=== PATIENT | female | born 1950 | race Caucasian/White ===

== ENCOUNTER → 2016-10-09 | Outpatient (CLI) | payer OTHER ==
[~2016-10-09] MED LIST: ATV1; DSP25 PO; LABE100T16 PO
== END | disposition home or self-care (01) ==
LOC: C.PAPS 12:24
PROVIDERS: ATTEND Obstetrics & Gynecology
DX: Z01.419 Encounter for gynecological examination (general) (routine) without abnormal findings (principal)

== ENCOUNTER → 2017-09-01 | Outpatient (CLI) | payer OTHER ==
--- NOTE | 2017-09-01 11:59 | DIAGNOSTIC IMAGING REPORT ---
CHEST 2 VIEWS ROUTINE CLINICAL HISTORY: Sarcoidosis. Dyspnea on exertion. COMPARISON STUDY: Chest radiograph April 09, 2016. FINDINGS: Lung volumes are normal. There is no pneumothorax or pleural effusion. There is no evidence for pulmonary edema. There is no consolidation to suggest pneumonia. Cardiomediastinal silhouette is unremarkable. The appearance of the chest is unchanged. IMPRESSION: No acute cardiopulmonary findings. No change in appearance of the chest. Electronically signed by: Paolo Da Silva M.D. 09/01/2017 11:58 AM Dictated Date/Time: 09/01/2017 11:57 AM
[2017-09-01 12:08] LABS: BASO % 0.4 %; BASO ABS # 0.04 K/uL (0-0.2); EOS % 1.8 %; EOS ABS # 0.18 K/uL (0-0.5); HEMATOCRIT 43.3 % (37-47); HEMOGLOBIN 14.4 g/dL (12.0-16.0); IG# 0.08 K/uL (0.00-0.02); LYMPH % 27.6 %; LYMPH ABS # 2.69 K/uL (1.2-3.4); MEAN CELL VOLUME 87.3 fL (80-100); MEAN CORPUSCULAR HGB CONC 33.3 g/dl (32-36); MEAN PLATELET VOLUME 9.8 fL (7.4-10.4); MONO % 8.2 %; NEUT % 61.2 %; NEUT ABS # 5.97 K/uL (1.4-6.5); PLATELET COUNT 283 K/uL (130-400); RED CELL DISTRIBUTION WIDTH CV 14.3 % (11.5-14.5); RED CELL DISTRIBUTION WIDTH SD 45.6 fL (36.4-46.3); WHITE BLOOD COUNT 9.76 K/uL (4.8-10.8)
[2017-09-01 12:42] LABS: BLOOD UREA NITROGEN 15 mg/dl (7-18); CREATININE 0.87 mg/dl (0.60-1.20); GLUCOSE 82 mg/dl (70-99)
[2017-09-01 12:43] LABS: ALBUMIN 3.8 gm/dl (3.4-5.0); ALT/SGPT 25 U/L (12-78); AST/SGOT 12 U/L (15-37); CALCIUM 9.1 mg/dl (8.5-10.1); CARBON DIOXIDE 27 mmol/L (21-32); CHOLESTEROL 307 mg/dl (0-200); POTASSIUM 3.6 mmol/L (3.5-5.1); SODIUM 138 mmol/L (136-145)
[2017-09-01 12:53] LABS: ALKALINE PHOSPHATASE 101 U/L (45-117); LDL CHOLESTEROL CALCULATED 196 mg/dl; TOTAL PROTEIN 7.4 gm/dl (6.4-8.2)
== END | disposition home or self-care (01) ==
LOC: C.RAD 10:49
PROVIDERS: ATTEND Family Medicine
DX: R06.09 Other forms of dyspnea (principal); D86.9 Sarcoidosis, unspecified; E03.9 Hypothyroidism, unspecified; E78.5 Hyperlipidemia, unspecified; R53.83 Other fatigue; I10 Essential (primary) hypertension

== ENCOUNTER → 2017-09-28 | Outpatient (CLI) | payer OTHER ==
--- NOTE | 2017-10-02 13:21 | POLYSOMNOGRAPH REPORT ---
PORTABLE SLEEP STUDY REPORT REFERRING PHYSICIAN: Dr. Alfonso, Dr. Sommers. CLINICAL DATA: The patient is a 67-year-old female with a BMI of 37.97. She has a history of snoring and observed apneas. Her Paris sleepiness scale score is 7. On the evening of 09/29/2017, a home sleep apnea test was performed using the [employer] type 3 monitor. RECORDING RESULTS: Total recording time was 10 hours. The patient's estimated sleep time was 7 hours. RESPIRATORY DATA: There was no evidence of significant sleep apnea. The patient had a total of 22 respiratory events including 3 obstructive apneas, 1 central apnea, and 18 hypopneas. Hypopneas were scored according to the 4% desaturation rule. The YOLANDA was 3.1 events per hour. The longest respiratory event was 26 seconds. OXIMETRY DATA: The mean saturation for the night was 92%. The minimum saturation was 57%. However, this may well be technical. Occasionally, during the test, the patient's pulse oximeter did not read. There seemed to be a lot of movement often during the night. The time below 89% was 14 minutes, but it is unknown if this was valid or not. RATE DATA: Cardiac rates ranged from 34-87 beats per minute. Once again in light of the pulse oximeter not reading for the entire night, it is unknown if the low heart rates were accurate or not. SNORING DATA: The patient snored throughout the test. IMPRESSION: 1. No evidence of significant obstructive sleep apnea. 2. Cannot entirely exclude nocturnal hypoxia. RECOMMENDATIONS: 1. It is advised that the patient have an overnight pulse oximetry study done to help exclude nocturnal hypoxia. 2. The patient should be advised of the appropriate principles of sleep hygiene including having a regular sleep-wake schedule and allowing 7.5 hours of sleep time per night. 3. It would be suggested that she avoid sleeping in the supine position. Typically, there is more snoring and respiratory events while supine. 4. Weight loss would be advised in light of the elevation of body mass index of 37.97.
== END | disposition home or self-care (01) ==
LOC: C.NEUR 12:44
PROVIDERS: ATTEND Internal Medicine Pulmonary Disease
DX: D86.9 Sarcoidosis, unspecified (principal); G47.30 Sleep apnea, unspecified; R06.09 Other forms of dyspnea; I11.0 Hypertensive heart disease with heart failure; M25.50 Pain in unspecified joint; E66.9 Obesity, unspecified

== ENCOUNTER → 2017-11-05 | Outpatient (CLI) | payer OTHER ==
[~2017-11-05] MED LIST changes: +PERFLUTREN LIPID MICROSPHERE (DEFINITY) IV ONE
--- NOTE | 2017-11-05 14:35 | EXERCISE STRESS ECHO ---
*NOTICE TO RECEIVING DEMOCRAT AGENCY This information is strictly Confidential and protected under [place] law. [place] law prohibits you from making any further disclosure of this information unless further disclosure is expressly permitted by the written consent of the person to whom it pertains or is authorized by law. A general authorization for the release of medical or other information is not sufficient for this purpose. Hospital accepts no responsibility if the information is made available to any other person, INCLUDING THE PATIENT. Interpretation Summary * Name: DAVIN YANEZ Study Date: 11/05/2017 09:37 AM BP: 109/43 mmHg * Patient Location: [facility] HR: 82 * : 1950 (M/d/yyyy) Gender: Female Height: 63 in * Age: 67 yrs Ethnicity: CA Weight: 200 lb * Ordering Physician: Suresh Sommers * Referring Physician: Suresh Sommers * Performed By: Alize Barahona RDCS * * Reason For Study: SARCOIDOSIS, SLEEP DISTURBANCE * BSA: 1.9 m2 * -- Conclusions -- * Left ventricular systolic function is normal. * The right ventricular systolic function is reduced as assessed by tricuspid annular plane systolic excursion (TAPSE) (TAPSE <1.6 cm). * Sub maximal exercise echocardiogram * Test terminated due to significant fatigue and dyspnea * No evidence of inducible ischemia at the workload achieved Procedure Details * A contrast injection of Definity was performed to improve assessment of LV function. * Contrast was injected into an intravenous site in the right arm. * One vial of Definity ultrasound contrast was diluted in normal saline to a total volume of 10 ml. A total of '4' ml of solution was administered during imaging. * Lot # [id number] of Definity utilized for procedure. * Expiration date 10/28. * The attending nurse who injected the contrast agent was RAJWINDER FITZPATRICK RN. Left Ventricular Findings with Stress * Sub maximal exercise echocardiogram Test terminated due to significant fatigue and dyspnea No evidence of inducible ischemia at the workload achieved Left Ventricle * The left ventricle is normal in size. * There is normal left ventricular wall thickness. * Ejection Fraction = 65-70%. * Left ventricular systolic function is normal. * The left ventricular wall motion is normal at rest. Right Ventricle * The right ventricle is grossly normal size. * The right ventricular systolic function is reduced as assessed by tricuspid annular plane systolic excursion (TAPSE) (TAPSE <1.6 cm). Atria * The left atrial size is normal. * Right atrial size is normal. Mitral Valve * The mitral valve is grossly normal. * There is no mitral regurgitation noted. Tricuspid Valve * The tricuspid valve is not well visualized, but is grossly normal. * No tricuspid regurgitation. Aortic Valve * The aortic valve is normal in structure and function. * The aortic valve is trileaflet. * No hemodynamically significant valvular aortic stenosis. * There is no significant aortic regurgitation. Pericardium * The pericardium appears normal. * There is no pericardial effusion. Stress Parameters * Normal baseline electrocardiogram. * Stress ECG: No ST changes. No arrhythmias. * The stress portion of this study was personally supervised by the undersigned interpreting physician. * Rest heart rate was '82' BPM. * Rest blood pressure was '109/43' * Maximum heart rate achieved was 131 bpm. * Maximum heart rate was 86 % of maximum age-predicted heart rate. * Maximum blood pressure was '157/66' * Total exercise time was '3:49' * Maximum exercise MET level achieved was '5.50' METS * Maximum treadmill speed was '2.50' miles per hour. * Maximum treadmill elevation was '12.00'% grade. * The patient exhibited dyspnea during exercise. * Exercise was stopped due to dyspnea. Left Ventricular Findings with Stress * The baseline EKG was normal There are no significant ST or T-wave changes at peak exertion Baseline echocardiogram was normal There was normal augmentation of all segments without development of wall motion abnormalities at peak exertion Gonzalez treadmill score: 3.5 (intermediate risk) MMode 2D Measurements and Calculations IVSd 1.0 cm IVSs 1.7 cm LVIDd 5.1 cm LVIDs 3.1 cm LVPWd 0.96 cm LVPWs 2.2 cm IVS/LVPW 1.1 FS 39.3 % EDV(Teich) 122.4 ml ESV(Teich) 37.4 ml EF(Teich) 69.5 % EDV(cubed) 130.7 ml ESV(cubed) 29.3 ml EF(cubed) 77.6 % % IVS thick 63.9 % % LVPW thick 130.4 % LV mass(C)d 183.1 grams LV mass(C)dI 94.7 grams/m\S\2 LV mass(C)s 255.7 grams LV mass(C)sI 132.2 grams/m\S\2 SV(Teich) 85.0 ml SI(Teich) 44.0 ml/m\S\2 SV(cubed) 101.4 ml SI(cubed) 52.4 ml/m\S\2 ACS 1.6 cm LA dimension 3.5 cm asc Aorta Diam 3.4 cm LVOT diam 2.1 cm LVOT area 3.4 cm\S\2 LVAd ap4 26.7 cm\S\2 LVLd ap4 7.3 cm EDV(MOD-sp4) 81.5 ml EDV(sp4-el) 83.3 ml LVAs ap4 12.8 cm\S\2 LVLs ap4 5.4 cm ESV(MOD-sp4) 25.9 ml ESV(sp4-el) 25.9 ml EF(MOD-sp4) 68.1 % EF(sp4-el) 68.9 % LVAd ap2 23.4 cm\S\2 LVLd ap2 7.2 cm EDV(MOD-sp2) 64.9 ml EDV(sp2-el) 64.6 ml LVAs ap2 12.4 cm\S\2 LVLs ap2 6.0 cm ESV(MOD-sp2) 22.2 ml ESV(sp2-el) 21.9 ml EF(MOD-sp2) 65.8 % EF(sp2-el) 66.1 % LVLd %diff -0.86 % EDV(MOD-bp) 73.3 ml LVLs %diff 9.5 % ESV(MOD-bp) 24.7 ml EF(MOD-bp) 66.3 % SV(MOD-sp4) 55.5 ml SI(MOD-sp4) 28.7 ml/m\S\2 SV(MOD-sp2) 42.7 ml SI(MOD-sp2) 22.1 ml/m\S\2 SV(MOD-bp) 48.6 ml SI(MOD-bp) 25.1 ml/m\S\2 SV(sp4-el) 57.4 ml SI(sp4-el) 29.7 ml/m\S\2 SV(sp2-el) 42.7 ml SI(sp2-el) 22.1 ml/m\S\2 Doppler Measurements and Calculations MV E max pastora 56.6 cm/sec MV A max pastora 51.3 cm/sec MV E/A 1.1 MV dec time 0.29 sec Ao V2 max 123.4 cm/sec Ao max PG 6.1 mmHg Ao max PG (full) 3.9 mmHg SEBAS(V,A) 2.0 cm\S\2 SEBAS(V,D) 2.0 cm\S\2 LV V1 max PG 2.2 mmHg LV V1 max 73.9 cm/sec PA V2 max 67.9 cm/sec PA max PG 1.8 mmHg
== END | disposition home or self-care (01) ==
LOC: C.CPL 09:32
PROVIDERS: ATTEND Internal Medicine Pulmonary Disease
DX: D86.9 Sarcoidosis, unspecified (principal); G47.9 Sleep disorder, unspecified

== ENCOUNTER 2021-11-04 06:17 | Observation (INO) ==
--- NOTE | 2021-10-15 08:39 | PAT Medication Instructions ---
Medication Instructions Date of Service October 15, 2021 Home Medications Medication Instructions Recorded buspirone 5 mg tablet 5 mg PO BID #180 tab 01/31/21 atorvastatin 10 mg tablet 10 mg PO QAM #90 tab 06/10/21 diclofenac sodium 75 mg 75 mg PO BID #180 tab 07/01/21 tablet,delayed release lorazepam 1 mg tablet 1.5 mg PO HS #45 tab 09/14/21 desipramine 50 mg tablet 200 mg PO QAM #90 tab 10/06/21 buspirone 5 mg tablet 5 mg PO BID docusate sodium 100 mg capsule (Colace) 100 mg PO QAM atorvastatin 10 mg tablet 10 mg PO QAM diclofenac sodium 75 mg tablet,delayed release 75 mg PO BID spironolactone 50 mg tablet 50 mg PO QAM lorazepam 1 mg tablet 1.5 mg PO HS desipramine 50 mg tablet 200 mg PO QAM acetaminophen 325 mg tablet (Tylenol) 650 mg PO HS calcium carbonate 600 mg-vitamin D3 5 mcg (200 unit) tablet 1 tab PO QAM ASK your surgeon for instructions diclofenac sodium 75 mg tablet,delayed release 75 mg PO BID DO NOT take the morning of surgery docusate sodium 100 mg capsule (Colace) 100 mg PO QAM spironolactone 50 mg tablet 50 mg PO QAM calcium carbonate 600 mg-vitamin D3 5 mcg (200 unit) tablet 1 tab PO QAM Take morning of surgery With a small sip of water, OTHERWISE NOTHING TO EAT OR DRINK AFTER MIDNIGHT: buspirone 5 mg tablet 5 mg PO BID atorvastatin 10 mg tablet 10 mg PO QAM desipramine 50 mg tablet 200 mg PO QAM Take evening before surgery buspirone 5 mg tablet 5 mg PO BID lorazepam 1 mg tablet 1.5 mg PO HS acetaminophen 325 mg tablet (Tylenol) 650 mg PO HS Other Notes If you have any questions please call us at [phone] or [phone] or [phone] or [phone]
--- NOTE | 2021-10-15 09:31 | Anesthesiology Consultation ---
Date of Service October 15, 2021 Assessment & Plan (1) Encounter for pre-operative examination: - awaiting PCP response to optimization note regarding elevated creatinine. - pulmonology office visit 12/06/2020 [place]: "...Shortness of breath on exertion No personal or family history of asthma Lifetime non-smoker Has used albuterol inhaler without any significant relief. Patient signs and symptoms does not go along with asthma. Chest x-ray from today does not show any infiltrates or hilar lymphadenopathy. CT chest from 2010 did show mosaicism which can be seen in asthma but it can also be seen in morbid obesity. Looking at PFTs, 2D echo I th ink physical deconditioning is playing a major role when it comes to her shortness of breath rather than pulmonary or cardiac etiology. PFTs 11/01/2020: No obstructive lung dysfunction, minimal but insignificant bronchodilator response, normal DLCO. Suboptimal test as she was not able to exam for 6 seconds. (Improvement in lung volumes compared to 09/2017, patient has lost 20 pounds since that time). FVC 2.3 L, 102%, FEV1 2.02 L 116%, FEV1/FVC 88%, RV 102%, TLC 99%, RV/TLC 106%, DLCO 85%. 2D echo 11/26/2020: EF 60-65%, grade 1 diastolic dysfunction, right ventricular normal in size and function. Labs 02/19/2020:-TSH: 2.3, calcium 9.2 with albumin 4, AST 11, ALT 20, no lymphopenia appreciated on CBC, absolute eosinophil count of 280--History of sarcoidosis. Diagnosed s/p mediastinoscopy back in the eighties. Patient was never treated. On the CT chest in 2010 no mediastinal lymphadenopathy or any parenchymal abnormality were appreciated. Labs from 02/19/2020 shows normal calcium and normal LFTs. I do not think repeat CAT scan is indicated right now. Does not need further work-up or treatment. Chest x-ray 05/07/2020: PA/lateral view, good inspiratory effort, bilateral costophrenic and cardiophrenic angles are clean, no clear infiltrate appreciated. CT chest 05/04/2011: Mosaicism appreciated bilaterally, insignificant mediastinal adenopathy...There is no absolute contraindication from pulmonary perspective to have the knee surgeries. Patient may benefit from BiPAP post surgery..." - COVID screening: Per assessment on 10/15/2021: Travel screen negative, no known COVID-19 positive contacts or current COVID-19 related symptoms in past 2 weeks. Patient vaccinated. Surgeon arranging preop COVID testing, scheduled 10/31/2021. Awaiting results. Chart Review Chart Review: Pending: Refer to Additional Notes / Consult section and Patient seen in Pre Admission Testing Teaching & Discussion Pre-Anesthesia Teaching/Discussion Notes: Instructed NPO after midnight before surgery, except medications with 15 cc of water. Medication instructions provid ed according to the PAT guidelines. History Surgery Operation Date: 11/04/21 08:50 Proposed Procedures p Right Total Knee Replacement - David Yee MD Surgery re-scheduled from 02/2021. Height/Weight Height: 5 ft 3 in Weight: 93.8 kg Allergies Allergy/AdvReac Type Severity Reaction Status Date / Time amoxicillin Allergy Unknown Rash Verified 10/10/21 14:26 ampicillin Allergy Unknown Rash Verified 10/10/21 14:26 clindamycin Allergy Unknown Rash Verified 10/10/21 14:26 Medications Home Medications Medication Instructions Recorded Confirmed Last Taken buspirone 5 mg tablet 5 mg PO BID #180 tab 01/31/21 10/10/21 Unknown docusate sodium 100 mg capsule 100 mg PO QAM 02/12/21 10/10/21 Unknown (Colace) atorvastatin 10 mg tablet 10 mg PO QAM #90 tab 06/10/21 10/10/21 Unknown diclofenac sodium 75 mg 75 mg PO BID #180 tab 07/01/21 10/10/21 Unknown tablet,delayed release spironolactone 50 mg tablet 50 mg PO QAM 07/22/21 10/10/21 Unknown lorazepam 1 mg tablet 1.5 mg PO HS #45 tab 09/14/21 10/10/21 Unknown desipramine 50 mg tablet 200 mg PO QAM #90 tab 10/06/21 10/10/21 Unknown acetaminophen 325 mg tablet 650 mg PO HS 10/10/21 10/10/21 Unknown (Tylenol) calcium carbonate 600 mg-vitamin 1 tab PO QAM 10/10/21 10/10/21 Unknown D3 5 mcg (200 unit) tablet Past Medical History Medical History (Updated 10/15/21 @ 10:14 by Kat Paz PA-C) Anxiety and depression Dyspnea on exertion GERD (gastroesophageal reflux disease) controlled, stable per pt History of sarcoidosis Surrounding lung region per pt, no recent issues/stable Hyperlipidemia Hypertension controlled, stable per pt Obesity Thyroid goiter Under surveillance TMJ (temporomandibular joint disorder) NO LOCKING Patient denies h/o stroke, seizures, heart attack, heart failure, DM, blood clots or blood transfusions. Exercise / Class Metabolic Activity III < 4 Walking/Shop/Light housework (SOB with usual activities ongoing x yrs, denies change or worsening; denies CP) Past Family History Family History Unknown Ovarian cancer Breast cancer Father Stroke syndrome Other No family history of adverse response to anesthesia Denies family history of Prostate cancer Myocardial infarction Colorectal cancer Past Surgical History Surgical History History of anesthesia reaction SLOW TO WAKE UP History of section History of dilation and curettage History of lung biopsy History of tooth extraction History of tubal ligation Past Anesthesia History No Family Hx of Anesthesia Complications and Other (slow to wake) History of PONV No Hx of PONV, No Hx of Motion Sickness and Hx of Motion Sickness Social History Smoking Status: Never smoker Do You Dip or Chew Tobacco: No Hx Alcohol Use: No Hx Substance Use: No Review of Systems Snoring, denies witnessed apneas. Normal sleep study. Patient denies chest pain, snoring, witnessed apneas, fever, chills, cough, wheezing, or palpitations. Physical Exam Vital Signs Vitals BP 108/71 P 80 TEMP 98.1 SP02 99% on RA RESP 17 Physical Full cervical extension range of motion without pain Full TMJ range of motion TMD 3.5 finger breaths Mallampati Score 3 Dentition: intact, missing right upper back teeth; denies chipped or loose teeth, caps/crowns, implants or bridges Lungs: normal respiratory effort. Clear throughout to auscultation, no adventitious breath sounds Cardiac: regular rate and rhythm, no murmurs noted Carotid arteries: negative bruit bilat Lab Results Anesthesia Preop Results Results Anesthesia Widget: WBC 7.17 K/uL (4.8-10.8) 10/15/21 Hgb 13.5 g/dL (12.0-16.0) 10/15/21 Hct 40.4 % (37-47) 10/15/21 Plt 272 K/uL (130-400) 10/15/21 Na 134 mmol/L (136-145) L 10/15/21 K 5.0 mmol/L (3.5-5.1) 10/15/21 Cl 103 mmol/L (98-107) 10/15/21 CO2 24 mmol/L (21-32) 10/15/21 BUN 23 mg/dl (6-23) 10/15/21 Creat 1.52 mg/dl (0.6-1.2) H 10/15/21 Glucose Level 102 mg/dl (70-99(Fasting)) H 10/15/21 PT 10.4 Seconds (9.0-12.0) 10/15/21 PTT 25.6 Seconds (21.0-31.0) 10/15/21 INR 1.0 (0.9-1.1) 10/15/21 TSH 1.992 uIu/ml (0.300-4.500) 08/18/21 Blood Type B Positive 10/15/21 Antibody Screen NEGATIVE 10/15/21 Testing Electrocardiogram Date: 02/17/21 NSR, rate 79 bpm Low voltage QRS Incomplete RBBB Chest X-Ray Date: 10/15/21 FINDINGS: No lines and tubes are seen. The cardiomediastinal silhouette is normal. The lungs are clear. No evidence of pleural effusion or pneumothorax. IMPRESSION: No acute chest disease. Echocardiogram Date: 11/26/20 EF 60-65% Normal LV size, thickness and function No regional wall motion abnormalities Grade I diastolic dysfunction No significant valvular pathology Stress Test Date: 11/05/17 Type: exercise No evidence of inducible ischemia at workload achieved. 86% MPHR. 5.5 METS. Submaximal exercise echocardiogram. Test terminated due to significant fatigue and dyspnea. EF 65 to 70%. No significant valvular disease.
--- NOTE | 2021-10-31 15:30 | History and Physical Report ---
DATE OF ADMISSION: 11/04/2021 CHIEF COMPLAINT: Bilateral knee pain and discomfort, right side greater than left. HISTORY OF PRESENT ILLNESS: The patient is a 71-year-old female who now presents for surgical treatm ent of her right knee. She has got a long history of bilateral knee pain and discomfort that has gra dually gotten worse over time. She has had extensive treatment provided by Dr. Ritter in the past i ncluding injections, which have not been helpful lately. The last shot did not help at all. She has been using a walker to get around. She has become more debilitated by her pain. She would like to have her knees fixed. PAST MEDICAL HISTORY: Significant for, 1. Depression. 2. Obesity with a BMI of 37. 3. Hypertension. 4. Sarcoidosis, well compensated. 5. Low back pain. PAST SURGICAL HISTORY: Includes, 1. x2. 2. Lung surgery for sarcoidosis. ALLERGIES: AMOXICILLIN, WHICH CAUSES A RASH. ALSO DESCRIBES A RASH TO CLINDAMYCIN. CURRENT MEDICATIONS: Include, 1. Amlodipine. 2. Aspirin. 3. Atorvastatin. 4. Buspirone. 5. Desipramine. 6. Diclofenac. 7. Colace. 8. Spironolactone. 9. Clonazepam. 10. Tramadol. 11. Topical steroid cream. SOCIAL HISTORY: A 71-year-old female who lives in [place]. Lives alone. She is . Two ch ildren. Does not smoke. FAMILY HISTORY: Noncontributory. REVIEW OF SYSTEMS: Negative for diabetes, neurologic problem, vascular problems or bleeding disorder s. No chest pain or shortness of breath. No history of DVT or PE. PHYSICAL EXAMINATION: GENERAL: Shows a pleasant, mild to moderately obese, middle-aged female. HEENT: Benign. NECK: Supple. No lymphadenopathy. LUNGS: Clear to auscultation. HEART: Regular rate and rhythm. ABDOMEN: Soft, nontender, nondistended. EXTREMITIES: Grossly neurovascularly intact except as follows: Examination of both knees revealed p atient walks with use of a walker. She walks a very slow, hesitant kind of gait. Examination of the right knee reveals moderate soft tissue envelope. She has got varus deformity to her knee, which is increased with weightbearing. She has got about 20-degree flexion contracture. S he can only bend to about 80 degrees. No pain with hip motion. She is neurologically intact. Examination of the left knee reveals a similar varus deformity. Increased with weightbearing. Range of motion is 10 to about 90. No instability. No pain with hip motion. X-RAYS: X-rays of both knees were reviewed. It shows severe advanced bilateral knee DJD. She has g ot extensive disease with tibial femoral subluxation and destruction of her tibial plateaus on the me dial side bilaterally. ASSESSMENT: A 71-year-old white female with advanced tricompartment knee degenerative joint disease. She has got disabling disease. She has failed conservative treatment. PLAN: We are going to proceed with right knee replacement. The risks and benefits of this procedure were explained to the patient and include but not limited to DVT, PE, , infection, neurological injury, vascular injury, bleeding problem, pain, limited range of motion, stiffness, failure to reli catherine her symptoms, incomplete relief of symptoms, need for further surgery in the future, etc. The pa tient understands and desires to proceed. Informed consent was obtained. We will plan on using a Vanguard 360 stem on her tibia due to her severe deformity. She will likely need to go to rehab at [facility] postoperatively. She needs to hold the diclofenac 2 weeks preop. Job ID: [id number]
[~2021-11-04 06:17] MED LIST changes: +ACETAMINOPHEN 500 MG TAB PO SCH; -ATV1; +BUPIVACAINE LIPOSOME/PF 266 MG, BUPIVACAINE/EPINEPHRINE 50 ML, SODIUM CHLORIDE 0.9% 30 ... INFIL SCH; -DSP25 PO; +FAMOTIDINE 20 MG TAB PO SCH; +GABAPENTIN 300 MG CAP PO SCH; -LABE100T16 PO; +LR 15ML/HR IV SCH; +LR 60ML/HR IV SCH; +METOCLOPRAMIDE HCL 10 MG TABLET PO SCH; -PERFLUTREN LIPID MICROSPHERE (DEFINITY) IV ONE; +TRANEXAMIC ACID 1,000 MG **IV Intra-op IV SCH; +ceFAZolin 2000MG 2,000 MG/15 ML SYR IV SCH
[2021-11-04] MEDS ORDERED: BUPIVACAINE 0.5 % 5 MG/1 ML MPF 30ML VIAL ONE (06:31)
[2021-11-04] MEDS ORDERED: ROPIVACAINE 0.5% 5 MG/ML 30 ML VIAL ONE (06:32)
--- NOTE | 2021-11-04 06:55 | History & Physical Bridge Note ---
Date of Service November 04, 2021 History & Physical Bridge Note I have examined the patient, reviewed the History & Physical and in the interval since the performance of the History & Physical I have noted the following changes of clinical significance: no changes noted
[2021-11-04] MEDS ORDERED: MIDAZOLAM HCL 1 MG/ML 2ML VIAL ONE ×2 (07:27→08:14)
[2021-11-04] MEDS ORDERED: fentaNYL citrate 100 MCG/2 ML VIAL ONE (07:27)
[2021-11-04] MEDS ORDERED: BUPIVACAINE LIPOSOME 1.3% 266 MG/20 ML VIAL ONE (08:24)
[2021-11-04] MEDS ORDERED: BUPIVACAINE/EPINEPHRINE 0.25% 1:200,000 30 ML VIAL ONE (08:24)
[2021-11-04] MEDS ORDERED: SODIUM CHLORIDE 0.9% PF 50 ML VIAL ONE (08:24)
[2021-11-04] MEDS ORDERED: HYDROmorphone INJ 2 MG/ML SYR/VIAL IV PRN (08:42)
[2021-11-04] MEDS ORDERED: ONDANSETRON INJ 2 MG/ML 2 ML VIAL IV PRN ×2 (08:42→11:51)
[2021-11-04] MEDS ORDERED: ATROPINE SULFATE 0.1 MG/ML 10ML SYR IV PRN (08:42)
[2021-11-04] MEDS ORDERED: PROMETHAZINE HCL 12.5 MG in SODIUM CHLORIDE 0.9% 50 ML IV PRN (08:42)
[2021-11-04] MEDS ORDERED: fentaNYL citrate 100 MCG/2 ML VIAL IV PRN (08:42)
[2021-11-04] MEDS ORDERED: ePHEDrine sulfate 50 MG/ML AMP IV PRN (08:42)
[2021-11-04] MEDS ORDERED: VANCOMYCIN HCL 1000MG/20ML VIAL ONE (08:46)
[2021-11-04] MEDS ORDERED: PROPOFOL IV EMULSION 10 MG/ML 20 ML VIAL IV ONE (08:59)
[2021-11-04] MEDS ORDERED: ONDANSETRON INJ 2 MG/ML 2 ML VIAL ONE (08:59)
[2021-11-04] MEDS ORDERED: PHENYLEPHRINE HCL 10 MG/ML VIAL ONE (08:59)
[2021-11-04] MEDS ORDERED: LIDOCAINE 2% 2 ML VIAL/AMP(20MG/ML) INFIL ONE (08:59)
--- NOTE | 2021-11-04 11:05 | Operative Report ---
PG Post Operative Report Pre & Post Diagnosis Operation Date: 11/04/21 08:50 Pre-Op Diagnosis: Right Knee Advanced Degenerative Joint Disease Post-Op Diagnosis: Right Knee Advanced Degenerative Joint Disease I identified the patient and participated in the time-out.: Yes Procedure Operation Date: 11/04/21 08:50 Actual Procedures p Right Total Knee Arthroplasty(Right) - David Yee MD Surgeon David Yee MD Workers Compensation Legal Secretary Liang Rodriguez PA-C Estimated Blood Loss 50 Findings Consistent with Post-Op Diagnosis Operative findings were advanced right knee tricompartment DJD with extensive grade 4 ithq-st-liyu disease in all 3 compartments with a fixed varus deformity to her knee and collapse of the posterior medial tibial plateau and bone destruction. Moderate-sized joint effusion. Large osteophytes and loose bodies throughout the knee. Fluids 1300 cc Specimens Right knee sent for pathology Anesthesia Type Spinal MAC Complications none Disposition Accompanied Patient To Recovery: No Indications Patient is 71-year-old female has had a long history of bilateral knee pain discomfort. She had been to extensive conservative care which became less elizalde ccessful several years ago. She recently essentially became wheelchair-bound due to her knee arthritis. She has had now a patient decided to proceed with knee replacement in hopes of better pain control and getting more ambulatory. Patient had a varus deformity to her knee with both bone destruction of the posterior medial tibial plateau. Therefore we elected to use a playset stem and the tibia to maximize her take tibial stability. Description of Procedure Operative implants consist of: 1. Biomet Vanguard size 67.5 right posterior stabilized femoral component. 2. Biomet size 67 tibial tray with a 14 mm x 80mm stem, small cruciate wing, 5 mm offset. 3. 10 mm posterior stabilized polyethylene insert. 4. 28 x 8 all polypatella. The patient was taken to the operating, identified, and placed on the operating table supine position protectors were properly padded. IV antibiotics tried by anesthesia team. A spinal anesthetic and abductor canal block had provided holding area. Thomas catheter was placed in sterile fashion. A right thigh tent was then placed in the right lower extremities then prepped and draped in usual sterile fashion. The right leg was elevated exsanguinated with use of an Esmarch in terms playset 300 mmHg. An anterior approach to the right knee was then performed through longitudinal incision centered over the patella. Sharp dissection was carried through subcutaneous is down the extensor mechanism. A medial parapatellar arthrotomy incision was made. Some subperiosteal dissection was carried out m edially. The fat pad was resected from each patella tendon. The lateral patellofemoral ligament was released. The I did subluxate the patella but there were so many loose and large extra pieces around the patella I elected to at least cut this first. I did remove the large pieces around the patella. I measured the patella thickness which was 20 mm in thickness. I cut this down to about 13. We sized this to a size 28. I did not prepare this until the end of the case. The knee was flexed. The remnant of the PCL was removed. The ACL was chronically absent. The intercondylar notch osteophytes were removed. The tibia subluxated anteriorly. At this point I elected to cut the femur in order to make a little bit more room to prepare the tibia. The distal femur examined the sharp drop with intramedullary canal was suction. A right 5 degree valgus cutting guide was placed. Distal femoral cutting block was pinned in place but distal femoral cut was made to take an additional 3 mm bone off distal femur. The femur was then sized to a size 67.5. The AP cutting block was pinned parallel to the epicondylar axis which was 4 degrees of external rotation. The anterior cut, anterior chamfer, posterior cut, posterior chamfer cuts were made. Box cutting guide was placed in just slight lateral and the box cut was made. The knee was flexed. The remnants of the medial and lateral menisci were excised. There were multiple loose bodies in the back of the knee which were removed. The posterior osteophytes were removed. The tibia was then subluxated anteriorly and attention was then drawn. Tibial preparation. I reamed the tibia up to a size 14. I then cut the proximal tibia to remove 8 mm bone from most deficient aspect of the lateral side of the knee. This did leave a small gap very posterior medially where she had a bone defect and we elected just to fill this with cement. I sized the needle was 67. It was then prepared for a 5 mm offset stem. We placed the trial implant and it fit quite nicely. The trial femoral component was placed. I then trialed the knee and the 10 mm insert fit most appropriately. I then prepared the patella and placed the 28 patella. It tracked nicely. We elect to place these implants. Nupathe all trial implants were removed. A bone plug was placed in the distal femur limit blood loss. A double batch Palacos G cement was mixed with additional gram of vancomycin. I then affixed/placed a Vanguard 67.5 right posterior stabilized femoral component, a Vanguard 360 size 67 tibial tray with a 80 mm x 14 mm stem, small cruciate wing, 5 mm offset along with a 10 mm posterior stabilized polyethylene insert and a 28 x 8 all probably patella. The knee was brought out in full extension total cement hardened. Final cement check was then performed. The pericapsular tissues were injected with total 100 cc of combination of 20 cc of Exparel, 30 cc normal saline, 50 cc of quarter percent Marcaine with epinephrine. Patient did receive 1 g of tranexamic acid. The tourniquet was let down for turn time 70 minutes. Hemostasis assured use electrocautery. Extensor neck was then closed with combination 1 PDS suture #1 Vicryl suture in [id number] fashion. Extensor mechanism checked found to be intact the subcutaneous tissue then closed with 2-0 Dexon suture buried interrupted fashion skin was closed skin mina. Legs then cleaned and dried a sterile dressing both Xeroform, 4 x 4's, sterile cast padding, Po bandage were applied. Patient then transferred to the recovery room in stable condition. The patient tolerated procedure well and there were no complications. Liang Rodriguez, my physician supply chain assistant, was present for the entire procedure. His assistance was essential and required for appropriate patient positioning, prepping and draping, surgical exposure, performing the technical details of the operation, placement the implants, closure of the wound, and placement of the sterile bandage. I attest to the content of the Intraoperative Record and any orders documented therein. Any exceptions are noted below.
--- NOTE | 2021-11-04 11:21 | Anesthesiology Progress Note ---
Date of Service November 04, 2021 Anesthesia Post Procedure Vital Signs Vital Signs: Temp Pulse Pulse Resp BP Pulse Ox 11/04/21 11:05 69 23 129/71 98 11/04/21 10:55 69 19 129/58 L 97 11/04/21 10:48 36.0 C L 74 16 127/72 100 11/04/21 06:45 36.6 C 74 20 131/88 97 Transfer of Care Handoff Completed per policy Notes Mental Status: alert / awake / arousable and participated in evaluation Patient Amnestic to Procedure: Yes Nausea / Vomiting: adequately controlled Pain: adequately controlled Airway Patency, RR, SpO2: stable & adequate BP & HR: stable & adequate Hydration State: stable & adequate Neuraxial Anesthesia: was administered and sensory block is resolving Anesthetic Complications: no major complications apparent
[2021-11-04] MEDS ORDERED: NALOXONE HCL 0.4 MG/1 ML VIAL/CARP IV PRN (11:51)
[2021-11-04] MEDS ORDERED: MAGNESIUM HYDROXIDE SUSP 30 ML UDC PO PRN (11:51)
[2021-11-04] MEDS ORDERED: oxyCODONE HCL IR 5 MG TAB (IMMEDIATE RELEASE) PO PRN (11:51)
[2021-11-04] MEDS ORDERED: ALUMINUM/MAGNESIUM SUSP 30 ML UDC PO PRN (11:51)
[2021-11-04] MEDS ORDERED: bisacodyL 10 MG SUPP PR PRN (11:51)
[2021-11-04] MEDS ORDERED: HYDROmorphone INJ 0.5 MG/0.5 ML SYR IV PRN (11:51)
[2021-11-04] MEDS ORDERED: METOCLOPRAMIDE HCL INJ 5 MG/ML 2 ML VIAL IV PRN (11:51)
[2021-11-04] MEDS ORDERED: MELATONIN 3 MG TAB PO PRN (12:04)
--- NOTE | 2021-11-04 12:19 | XRay Report ---
XR knee RT 1 or 2V routine CLINICAL HISTORY: Postoperative evaluation. COMPARISON: Right knee radiographs October 17, 2021. FINDINGS: Alignment of the right knee arthroplasty is anatomic. Longstem tibial component is present . No periprosthetic fracture is present. There are no radiopaque foreign bodies. Skin mina are pre sent. IMPRESSION: Expected findings following total right knee arthroplasty. ACT 112: Negative or not required by law. Electronically signed by: Paolo Da Silva M.D. 11/04/2021 12:17 PM
[2021-11-04] MEDS: SODIUM CHLORIDE 0.9% 1000ML 1,000 ML IV SCH ×2 (12:35→22:33)
[2021-11-04] MEDS: KETOROLAC TROMETHAMINE 15 MG/ML VIAL IV SCH ×2 (13:41→17:56)
[2021-11-04] MEDS: ACETAMINOPHEN 500 MG TAB PO SCH ×2 (13:42→20:52)
[2021-11-04] MEDS ORDERED: TRANEXAMIC ACID / 0.7% NACL 1,000 MG/100 ML BAG IV SCH (17:00)
[2021-11-04] MEDS: ASCORBIC ACID 500 MG TAB PO SCH (17:23)
[2021-11-04] MEDS: ceFAZolin 2000MG 2,000 MG/15 ML SYR IV SCH (17:25)
[2021-11-04] MEDS: ASPIRIN 81 MG ECTAB PO SCH (20:49)
[2021-11-04] MEDS: SENNA 8.6 MG TAB PO SCH (20:50)
[2021-11-04] MEDS: busPIRone 5 MG TAB PO SCH (20:50)
[2021-11-04] MEDS: DOCUSATE SODIUM 100 MG CAP PO SCH (20:50)
[2021-11-04] MEDS: TAPENTADOL HCL ER 50 MG TABCR PO SCH (20:51)
[2021-11-04] MEDS: LORazepam 0.5 MG TAB PO SCH (20:51)
[2021-11-05] MEDS: KETOROLAC TROMETHAMINE 15 MG/ML VIAL IV SCH ×5 (01:04→23:07)
[2021-11-05] MEDS: ceFAZolin 2000MG 2,000 MG/15 ML SYR IV SCH (01:04)
[2021-11-05] MEDS: ACETAMINOPHEN 500 MG TAB PO SCH ×3 (05:54→23:06)
[2021-11-05 07:24] LABS: BUN Creatinine Ratio 19.5 (10-20); Calcium 7.8 mg/dl (8.5-10.1); Creatinine Clr Calc Pharmacy 45.9 ml/min; Est GFR (African American) 56.2 ml/min; Est GFR (Non-African American) 48.5 ml/min; Potassium 4.5 mmol/L (3.5-5.1)
[2021-11-05] MEDS ORDERED: dexAMETHasone 10 MG in SYRINGE 0 ML IV SCH (08:00)
[2021-11-05 08:28] LABS: Hematocrit (blood only) 33.4 % (37-47); Hemoglobin 10.8 g/dL (12.0-16.0); Mean Corpuscular Hemoglobin 29.6 pg (25-34); Mean Corpuscular Hgb Conc 32.3 g/dL (32-36); Mean Corpuscular Volume 91.5 fL (80-100); Platelet Count 233 K/uL (130-400); RDW Coefficient of Variation 13.6 % (11.5-14.5); RDW Standard Deviation 45.4 fL (36.4-46.3); Red Blood Count 3.65 M/uL (4.2-5.4); White Blood Count 9.29 K/uL (4.8-10.8)
[2021-11-05] MEDS ORDERED: DOCUSATE SODIUM 100 MG CAP PO SCH (09:00)
[2021-11-05] MEDS: ATORVASTATIN 10 MG TAB PO SCH (09:10)
[2021-11-05] MEDS: ASPIRIN 81 MG ECTAB PO SCH ×2 (09:10→20:31)
[2021-11-05] MEDS: ASCORBIC ACID 500 MG TAB PO SCH ×2 (09:10→18:10)
[2021-11-05] MEDS: busPIRone 5 MG TAB PO SCH ×2 (09:11→20:32)
[2021-11-05] MEDS: CALCIUM 600MG + VIT D 400 IU TAB PO SCH (09:11)
[2021-11-05] MEDS: DOCUSATE SODIUM 100 MG CAP PO SCH ×2 (09:11→20:32)
[2021-11-05] MEDS: MULTIVITAMIN TAB PO SCH (09:12)
[2021-11-05] MEDS: SPIRONOLACTONE 25 MG TAB PO SCH (09:12)
[2021-11-05] MEDS: TAPENTADOL HCL ER 50 MG TABCR PO SCH (09:15)
--- NOTE | 2021-11-05 12:58 | Progress Notes ---
DATE OF SERVICE: 11/05/2021. SUBJECTIVE: A 71-year-old white female, now postoperative day 1 from a right knee replacement. She is doing pretty well. Pain is controlled. Had a reasonable night. ____ out from therapy earlier th is morning. No chest pain or shortness of breath. Not feeling dizzy or lightheaded. OBJECTIVE: VITAL SIGNS: Temperature 36.6. Vital signs are stable. GENERAL: Shows a pleasant middle-aged female. She is lying in bed, looks pretty comfortable this mo rning. LUNGS: Clear to auscultation. HEART: Regular rate and rhythm. ABDOMEN: Soft, nontender, nondistended. EXTREMITIES: Grossly neurovascularly intact except as follows: Examination of the right leg reveals the dressing to be clean, dry and intact. Leg is well aligned. She can dorsiflex and plantarflex h er foot appropriately. NEUROLOGIC: She is neurologically intact. LABORATORY DATA: Hemoglobin 10.3. Hematocrit 33.4. Electrolytes are stable. ASSESSMENT: A 71-year-old white female postoperative day 1 from a right knee replacement, doing pret ty well. Pain is controlled. She is neurologically intact. PLAN: 1. DVT prophylaxis includes thigh-high TEDs, SCDs, and aspirin twice a day. 2. PT, OT, weightbear as tolerated. Right total knee protocol. 3. Pain control, doing okay with current pain regimen. 4. Disposition: She is hoping to be discharged to [facility]. Will have social media executive workdayanna whaley on that. Job ID: [id number]
[2021-11-05] MEDS: SENNA 8.6 MG TAB PO SCH (20:30)
[2021-11-05] MEDS: LORazepam 0.5 MG TAB PO SCH (20:30)
[2021-11-06] MEDS: ACETAMINOPHEN 500 MG TAB PO SCH (06:08)
[2021-11-06] MEDS: KETOROLAC TROMETHAMINE 15 MG/ML VIAL IV SCH (06:09)
[2021-11-06] MEDS: ASCORBIC ACID 500 MG TAB PO SCH (08:33)
[2021-11-06] MEDS: DOCUSATE SODIUM 100 MG CAP PO SCH (08:34)
[2021-11-06] MEDS: ATORVASTATIN 10 MG TAB PO SCH (08:34)
[2021-11-06] MEDS: busPIRone 5 MG TAB PO SCH (08:34)
[2021-11-06] MEDS: ASPIRIN 81 MG ECTAB PO SCH (08:34)
[2021-11-06] MEDS: SPIRONOLACTONE 25 MG TAB PO SCH (08:35)
[2021-11-06] MEDS: CALCIUM 600MG + VIT D 400 IU TAB PO SCH (08:35)
[2021-11-06] MEDS: MULTIVITAMIN TAB PO SCH (08:35)
--- NOTE | 2021-11-11 14:40 | Discharge Summary ---
Date of Service November 11, 2021 Discharge Data Procedures Performed Operation Date: 11/04/21 08:50 Actual Procedures p Right Total Knee Arthroplasty(Right) - David Yee MD Hospital Course (1) Status post total right knee replacement: This patient is a 71 year old female admitted on 11/04/21 and underwent total knee arthroplasty. She tolerated the procedure well and there were no complications. Transferred to the PACU post op and later to the orthopedic floor for further care. She was given ancef for antibiotic prophylaxis. She was also given TE stockings, SCDs, and aspirin for DVT prophylaxis. Hemoglobin, hematocrit, and vital signs were monitored during her hospital stay and remained stable. Did not require any blood transfusions. There were no complications during her hospital stay. By post op day #1 the patient was tolerating a regular diet, pain was reasonably controlled with oral pain medicine, and She was participating in physical therapy. On post op day #1 the patient was discharged to a rehab facility. She was given printed discharge instructions including prescriptions for extra strength tylenol, aspirin, and oxycodone. Continue physical therapy, weight bearing as tolerated. Continue TE stockings. Follow up approximately 2 weeks post op or sooner if there are problems or concerns. Coding Level of Care Code None Diagnoses Status post total right knee replacement Z96.651
== END 2021-11-06 13:07 ==
LOC: ASU 06:17 → 3E 06:17
DX: K21.9 Gastro-esophageal reflux disease without esophagitis; Z79.82 Long term (current) use of aspirin; Z79.899 Other long term (current) drug therapy; M79.4 Hypertrophy of (infrapatellar) fat pad; M17.11 Unilateral primary osteoarthritis, right knee; I10 Essential (primary) hypertension; Z88.1 Allergy status to other antibiotic agents; Z88.0 Allergy status to penicillin; E78.5 Hyperlipidemia, unspecified

== ENCOUNTER 2022-04-02 09:15 | Observation (INO) ==
--- NOTE | 2022-03-14 13:44 | History and Physical Report ---
DATE OF ADMISSION: 04/02/2022. CHIEF COMPLAINT: Left knee pain and discomfort, stiffness and limited mobility. HISTORY OF PRESENT ILLNESS: A 71-year-old female who presents for surgical treatment of her left kne e. She has got a long history of bilateral knee pain and discomfort that has gotten worse over time. She has been through extensive conservative care provided by Dr. Ritter in the past, which has bec ome less successful. She had a right knee replaced about 5 months ago and has done remarkably well f rom this. She continues to be limited by left knee pain. She has been using walker to get around fo r years. She would like to have her left knee fixed. PAST MEDICAL HISTORY: 1. Depression. 2. Obesity, BMI of 37. 3. Hypertension. 4. Sarcoidosis. 5. Low back pain. PAST SURGICAL HISTORY: Includes: 1. x2. 2. Sarcoid surgery, currently controlled. 3. Right knee replacement done on 11/04/2021. ALLERGIES: AMOXICILLIN, WHICH CAUSES A RASH. No bleeding problems. Also, describes a RASH TO CLIND AMYCIN. CURRENT MEDICATIONS: Include: 1. Aspirin. 2. Amlodipine. 3. Atorvastatin. 4. Buspirone. 5. Desipramine. 6. Diclofenac. 7. Colace. 8. Spironolactone. 9. Tramadol. 10. Clonazepam. SOCIAL HISTORY: A 71-year-old female who lives in [place]. , with two children. FAMILY HISTORY: Noncontributory. REVIEW OF SYSTEMS: Negative for diabetes, neurologic problem, vascular problems or bleeding disorder s. No chest pain or shortness of breath. No history of DVT or PE. PHYSICAL EXAMINATION: GENERAL: Shows a pleasant, elderly female. Looks to be in reasonably good health. HEENT: Benign. NECK: Supple. No lymphadenopathy. LUNGS: Clear to auscultation. HEART: Has a regular rate and rhythm. ABDOMEN: Soft, nontender, nondistended. EXTREMITIES: Grossly neurovascularly intact except as follows: Examination of the left knee reveals the patient walks with use of a walker. She has got marked varu s deformity, increased with weightbearing. She has about a 15-degree flexion contracture and can onl y bend about 90 degrees at best. Again, no pain with hip motion. Examination of the right knee reveals well-healed incision. Anatomic alignment to the knee. Range o f motion 0 to 110-115. X-RAYS: X-rays of the left knee revealed advanced left knee degenerative joint disease. She has got complete loss of medial joint space. She has got destruction of the medial tibial plateau. She has got a tibial femoral subluxation, severe. The right knee replacement looks to be in good position. ASSESSMENT: A 71-year-old white female with a long history of bilateral knee pain and arthritis. Horacio louis underwent right knee replacement 5 months ago and has done well from this. She would like to have her left knee replaced. She has failed all conservative measures. PLAN: We will proceed with left knee replacement. Risks and benefits of this procedure were explain ed to the patient including but not limited to DVT, PE, , infection, neurological injury, vascul ar injury, bleeding problem, pain, limited range of motion, stiffness, failure to relieve symptoms, i ncomplete relief of symptoms, etc. The patient understands and desires to proceed. Informed consent was obtained. She is hoping to go to [facility] to rehab this time. She went to [facility] last time, did not feel lik e she has got enough therapy. We put a stem in her tibia due to marked deformity. We will likely ad d some vancomycin to the cement as well due to her increased risk due to morbidity and the severity o f her disease. Job ID: [id number]
--- NOTE | 2022-03-25 10:03 | Anesthesiology Consultation ---
Date of Service March 25, 2022 Assessment & Plan (1) Encounter for pre-operative examination: Chart Review Chart Review: Pending: Refer to Additional Notes / Consult section The patient needs an updated EKG as hers is over a year old. If her EKG is unchanged she is an acceptable candidate for surgery. History Surgery Operation Date: 04/02/22 08:50 Proposed Procedures p Left Total Knee Arthroplasty - David Yee MD Height/Weight Height: 5 ft 1 in Weight: 86.183 kg Allergies Allergy/AdvReac Type Severity Reaction Status Date / Time amoxicillin Allergy Mild Rash Verified 03/24/22 16:31 ampicillin Allergy Mild Rash Verified 03/24/22 16:31 clindamycin Allergy Mild Rash Verified 03/24/22 16:31 Medications Home Medications Medication Instructions Recorded Confirmed Last Taken docusate sodium 100 mg capsule 100 mg PO QAM 02/12/21 03/24/22 11/02/21 21:00 (Colace) atorvastatin 10 mg tablet 10 mg PO QAM #90 tabs 06/10/21 03/24/22 11/03/21 21:00 buspirone 5 mg tablet 5 mg PO BID #180 tabs 10/24/21 03/24/22 11/03/21 21:00 desipramine 50 mg tablet 200 mg PO QAM Depression #90 tabs 01/16/22 03/24/22 Unknown lorazepam 1 mg tablet 1.5 mg PO HS #45 tabs 03/20/22 03/24/22 Unknown melatonin 5 mg tablet 5 mg PO HS 03/24/22 03/24/22 Unknown Past Medical History Medical History Anxiety and depression Dyspnea on exertion GERD (gastroesophageal reflux disease) controlled, stable per pt History of sarcoidosis Surrounding lung region per pt, no recent issues/stable Hyperlipidemia Hypertension controlled, stable per pt Obesity Thyroid goiter Under surveillance TMJ (temporomandibular joint disorder) NO LOCKING Past Family History Family History Unknown Ovarian cancer Breast cancer Father Stroke syndrome Other No family history of adverse response to anesthesia Denies family history of Prostate cancer Myocardial infarction Colorectal cancer Past Surgical History Surgical History History of anesthesia reaction SLOW TO WAKE UP History of section History of dilation and curettage History of lung biopsy History of tooth extraction History of tubal ligation Status post total right knee replacement (~11/04/21) Dr. Yee @ [facility] Social History Smoking Status: Never smoker Do You Dip or Chew Tobacco: No Hx Alcohol Use: No Hx Substance Use: No substance use type: does not use Testing Electrocardiogram Date: 02/17/21 Findings: + NSR @ (79) Chest X-Ray Date: 10/15/20 Findings: + NAD Echocardiogram Date: 11/26/20 EF: 60-65% LV Function: normal
[~2022-04-02 09:15] MED LIST changes: +BUPIVACAINE 0.5 % 5 MG/1 ML PF 10ML VIAL ONE; +CeleBREX 200 MG CAP PO SCH; -GABAPENTIN 300 MG CAP PO SCH; +LR 500ML BOLUS, THEN 15ML/HR IV SCH; +ROPIVACAINE 0.5% 5 MG/ML 30 ML VIAL ONE
[2022-04-02] MEDS ORDERED: MIDAZOLAM HCL 1 MG/ML 2ML VIAL ONE (09:36)
[2022-04-02] MEDS ORDERED: PROPOFOL IV EMULSION 10 MG/ML 20 ML VIAL IV ONE ×2 (09:36→12:37)
--- NOTE | 2022-04-02 11:02 | History & Physical Bridge Note ---
Date of Service April 02, 2022 History & Physical Bridge Note I have examined the patient, reviewed the History & Physical and in the interval since the performance of the History & Physical I have noted the following changes of clinical significance: no changes noted
[2022-04-02] MEDS ORDERED: BUPIVACAINE LIPOSOME 1.3% 266 MG/20 ML VIAL ONE (11:03)
[2022-04-02] MEDS ORDERED: BUPIVACAINE/EPINEPHRINE 0.25% 1:200,000 30 ML VIAL ONE (11:03)
[2022-04-02] MEDS ORDERED: SODIUM CHLORIDE 0.9% PF 50 ML VIAL ONE (11:03)
[2022-04-02] MEDS ORDERED: ONDANSETRON INJ 2 MG/ML 2 ML VIAL ONE (11:44)
[2022-04-02] MEDS ORDERED: PHENYLEPHRINE HCL 10 MG/ML VIAL ONE (12:14)
--- NOTE | 2022-04-02 13:50 | Operative Report ---
PG Post Operative Report Pre & Post Diagnosis Operation Date: 04/02/22 10:40 Pre-Op Diagnosis: Left Knee Advanced Degenerative Joint Disease Post-Op Diagnosis: Left Knee Advanced Degenerative Joint Disease I identified the patient and participated in the time-out.: Yes Procedure Operation Date: 04/02/22 10:40 Actual Procedures p Left Total Knee Arthroplasty(Left) - David Yee MD Surgeon David Yee MD Shirt Folding Machine Operator Liang Rodriguez PA-C Estimated Blood Loss 50 Findings Consistent with Post-Op Diagnosis Operative findings real advanced to severe tricompartment left knee DJD with multiple large loose bodies. As she had bony destruction of the medial and posterior medial tibial plateau. Moderate-sized joint effusion. She had about a 20 to 25 degree flexion contracture and limited bend to about 95 degrees. Fluids 1200 cc. Specimens Left knee sent for pathology Drains None Anesthesia Type Spinal MAC Complications none Disposition Accompanied Patient To Recovery: No Indications Patient is a 71-year-old female has had a long history of bilateral knee pain discomfort and stiffness that is gotten to the point where she had trouble even ambulating with use of walker. Been through extensive conservative treatment which became less successful over time. She underwent a right total knee replacement earlier this year and is done quite well. She continues to be limited by left knee pain discomfort deformity stiffness. That she elected proceed with total knee arthroplasty. Patient had a severe deformity to her proximal tibia with bone destruction. We therefore used a tibial stem. Description of Procedure Operative implants consist of: 1. Biomet Vanguard size 67.5 left posterior stabilized femoral component. 2. Biomet size 67 tibial tray with a 5 mm offset, 14 x 80 mm stem, small cruciate wing. 3. 10 mm posterior stabilized polyethylene insert. 4. 31 x 8 all Paller patella. The patient was taken the operating, identified, placed on the operating table supine position protectors were properly padded. IV antibiotics tried by anesenait thesia team. Spinal anesthetic and abductor canal block had provided holding area. Thomas cath was placed in sterile fashion. Left factor was then placed in left lower extremity then prepped and draped in usual sterile fashion. The left leg was elevated exsanguinated with use of an Esmarch and the tourniquet was placed at 300 mmHg. An anterior approach to the left knee was then performed through a longitudinal incision centered over the patella check. Sharp dissection carried through subcutaneous this down the extensor mechanism. A medial parapatellar arthrotomy incision was made. Some subperiosteal dissection was carried out medially. Multiple large loose bodies in the suprapatellar pouch as well as around the patella tendon were removed. The lateral patellofemoral ligament was released. The patella was subluxated laterally knee was flexed. The osteophytes were taken off the intercondylar notch area. She did not appear to have any residual ACL or PCL ligaments and it was completely bony osteophyte across the notch. The tibia was then subluxated anteriorly. I then resected the tibial eminence. The tibial canal was reamed up to a size 14. The reamer was left in place and the proximal tibial cut was made remove about 10 mm of bone off the lateral side. This did leave a slight defect posterior medially. We elected to use as resection level. The tibia was then sized to a size 67. Was prepared for a 5 mm offset stem with a 14 x 80 mm stem and a cruciate wing. The trial implant was assembled and placed in the tibia and fit nicely. Attention drawn the femur. The distal femur examined the sharp drill bit intramedullary canal was suction. A left 5 degree valgus cutting guide was placed. Distal femoral cutting block was then pinned in place and the distal femoral cut was made to take an additional 3 mm bone off distal femur. The femur was then sized to a size 67.5. Size almost exactly 267.5. The AP cutting block was pinned parallel to the epicondylar axis which was 5 degrees of external rotation. Anterior cut, anterior chamfer, posterior cut, posterior chamfer cuts were made. The box cutting guide was placed in just slight lateral box cut was made. The knee was flexed. The remnants of the medial and lateral menisci were excised. The osteophytes taken off the posterior aspect of femur. There are multiple osteophytes removed. A trial femoral component was placed. The knee was then trialed and the 10 mm insert fit most appropriately. Attention drawn the patella. The patella was cleaned of all soft tissues. Patella thickness measured 28 mm in thickness and was cut down about 13. Was sized to a size 31 patella. The lug holes were drilled for the 31 patella. Lateral osteophytes removed. The patella button was placed. Knee was taken through range of motion patella tracked nicely with no thumbs test. Attention drawn to place the permanent components. All trial components were removed. Bone plug was placed into the distal femur limit blood loss. A double batch Palacos G cement was mixed. Biomet Vanguard size 67.5 left posterior stabilized femoral component, a size 67 tibial tray with a 14 x 80 mm offset and small cruciate wing was then placed followed by 10 mm posterior stabilized polyethylene insert, and a 31 x 8 all Paller patella. The knee was brought out in full extension until cement hardened. Final cement check was then performed. We did inject locally with a total of 100 cc of combination of 20 cc of Exparel, 30 cc normal saline, 50 cc of quarter percent Marcaine with epinephrine. Patient did receive 1 g tranexamic acid. The tourniquet was then let down for final turn time 78 minutes. Hemostasis assured with electrocautery. The extensor mechanism closed with combination 1 PDS suture #1 Vicryl suture in [id number] fashion with extensor mechanism checked found to be intact and subcutaneous tissue then closed with 2 Dexon suture in buried interrupted fashion skin was closed skin mina. Leg was then cleaned and dried a sterile dressing was Xeroform, 4 x 4's, sterile cast padding, Po bandage were applied. Patient then transferred to the recovery room in stable condition. Patient tolerated procedure well and there were no complications. Liang Rodriguez, my physician records management assistant, was present for the entire procedure. His assistance was essential and required for appropriate patient positioning, prepping and draping, surgical exposure, performing the technical details of the operation, placement the implants, closure of the wound, and placement of the sterile bandage. I attest to the content of the Intraoperative Record and any orders documented therein. Any exceptions are noted below.
--- NOTE | 2022-04-02 14:14 | Anesthesiology Progress Note ---
Date of Service April 02, 2022 Anesthesia Post Procedure Vital Signs Vital Signs: Temp Pulse Pulse Resp BP Pulse Ox O2 Del Method 04/02/22 14:00 97.5 F L 73 18 111/60 95 Room Air 04/02/22 13:50 75 17 118/68 98 Oxymask 04/02/22 13:41 97.5 F L 78 16 116/69 100 Oxymask 04/02/22 09:42 97.9 F 78 16 111/60 98 Room Air O2 Flow Rate 04/02/22 14:00 04/02/22 13:50 12 04/02/22 13:41 12 04/02/22 09:42 Transfer of Care Handoff Completed per policy Notes Mental Status: alert / awake / arousable and participated in evaluation Patient Amnestic to Procedure: Yes Nausea / Vomiting: adequately controlled Pain: adequately controlled Airway Patency, RR, SpO2: stable & adequate BP & HR: stable & adequate Hydration State: stable & adequate Neuraxial Anesthesia: was administered and sensory block is resolving Anesthetic Complications: no major complications apparent and Pt Satisfied with anesthetic care
--- NOTE | 2022-04-02 14:37 | XRay Report ---
XR knee LT 1 or 2V routine HISTORY: 71 years-old Female Surgical Post Op left knee total joint arthroplasty COMPARISON: Knee radiographs 02/26/2022 TECHNIQUE: 2 views of the left knee FINDINGS: Total joint arthroplasty with patellar resurfacing. Anterior midline skin mina with expected posto perative soft tissue swelling and deep tissue air. No acute fracture, alignment or unexpected opaque foreign body. IMPRESSION: Total joint arthroplasty with expected postoperative changes. ACT 112: Negative or not required by law. The above report was generated using voice recognition software. It may contain grammatical, syntax o r spelling errors. Electronically signed by: Eric Jean Baptiste M.D. 04/02/2022 2:36 PM
[2022-04-02] MEDS ORDERED: MAGNESIUM HYDROXIDE SUSP 30 ML UDC PO PRN (15:37)
[2022-04-02] MEDS ORDERED: ONDANSETRON INJ 2 MG/ML 2 ML VIAL IV PRN (15:37)
[2022-04-02] MEDS ORDERED: ALUMINUM/MAGNESIUM SUSP 30 ML UDC PO PRN (15:37)
[2022-04-02] MEDS ORDERED: METOCLOPRAMIDE HCL INJ 5 MG/ML 2 ML VIAL IV PRN (15:37)
[2022-04-02] MEDS ORDERED: bisacodyL 10 MG SUPP PR PRN (15:37)
[2022-04-02] MEDS ORDERED: HYDROmorphone INJ 0.5 MG/0.5 ML SYR IV PRN (15:37)
[2022-04-02] MEDS ORDERED: NALOXONE HCL 0.4 MG/1 ML VIAL/CARP IV PRN (15:37)
--- NOTE | 2022-04-02 16:02 | Electrocardiogram Report ---
Test Reason : Blood Pressure : / mmHG Vent. Rate : 073 BPM Atrial Rate : 073 BPM P-R Int : 166 ms QRS Dur : 088 ms QT Int : 412 ms P-R-T Axes : 055 015 028 degrees QTc Int : 453 ms Normal sinus rhythm Normal ECG When compared with ECG of 17-FEB-2021 11:56, Incomplete right bundle branch block is no longer Present Confirmed by Sony Mercedes ([id number]) on 04/02/2022 4:01:47 PM Referred By: David Yee Confirmed By:Sony Mercedes
[2022-04-02] MEDS: KETOROLAC TROMETHAMINE 15 MG/ML VIAL IV SCH ×2 (16:27→21:18)
[2022-04-02] MEDS: SODIUM CHLORIDE 0.9% 1000ML 1,000 ML IV SCH (16:28)
[2022-04-02] MEDS: ACETAMINOPHEN 500 MG TAB PO SCH ×2 (16:28→21:18)
[2022-04-02] MEDS: ceFAZolin 2000MG 2,000 MG/15 ML SYR IV SCH ×2 (16:43→23:06)
[2022-04-02] MEDS: ASCORBIC ACID 500 MG TAB PO SCH (16:44)
[2022-04-02] MEDS ORDERED: TRANEXAMIC ACID / 0.7% NACL 1,000 MG/100 ML BAG IV SCH (19:45)
[2022-04-02] MEDS ORDERED: MELATONIN 3 MG TAB PO SCH (21:00)
[2022-04-02] MEDS ORDERED: LORazepam 0.5 MG TAB PO SCH (21:00)
[2022-04-02] MEDS ORDERED: SENNA 8.6 MG TAB PO SCH (21:00)
[2022-04-02] MEDS ORDERED: NON-FORMULARY MEDICATION (Melatonin 5 mg tablet) PO SCH (21:00)
[2022-04-02] MEDS: ASPIRIN 81 MG ECTAB PO SCH (23:04)
[2022-04-02] MEDS: busPIRone 5 MG TAB PO SCH (23:04)
[2022-04-02] MEDS: DOCUSATE SODIUM 100 MG CAP PO SCH (23:05)
[2022-04-02] MEDS: oxyCODONE HCL IR 5 MG TAB (IMMEDIATE RELEASE) PO PRN (23:28)
[2022-04-03] MEDS: SODIUM CHLORIDE 0.9% 1000ML 1,000 ML IV SCH (02:54)
[2022-04-03] MEDS: KETOROLAC TROMETHAMINE 15 MG/ML VIAL IV SCH ×3 (02:54→16:57)
[2022-04-03] MEDS: ACETAMINOPHEN 500 MG TAB PO SCH ×2 (06:00→13:18)
[2022-04-03 06:30] LABS: Hemoglobin 11.1 g/dl (12.0-16.0); Mean Corpuscular Hemoglobin 28.6 pg (25.0-34.0); Mean Corpuscular Hgb Conc 32.6 g/dL (32.0-36.0); Mean Corpuscular Volume 87.6 fL (80.0-100.0); Mean Platelet Volume 10.5 fL (9.4-12.3); Platelet Count 173 K/uL (130-400); RDW Coefficient of Variation 13.5 % (11.5-14.5); RDW Standard Deviation 43.2 fL (36.4-46.3); Red Blood Count 3.88 M/uL (3.93-5.22)
[2022-04-03 06:48] LABS: BUN Creatinine Ratio 15.7 (10-20); Calcium 8.3 mg/dl (8.5-10.1); Creatinine Clr Calc Pharmacy 49.8 ml/min; Est GFR (African American) 63.6 ml/min; Est GFR (Non-African American) 54.9 ml/min; Potassium 3.9 mmol/L (3.5-5.1)
--- NOTE | 2022-04-03 07:50 | Progress Notes ---
DATE OF SERVICE: 04/03/2022. SUBJECTIVE: A 71-year-old female postoperative day 1 from a left knee replacement. She is doing oka y this morning. Just really worn out and tired. Did not get much sleep last night. She has had tro uble getting comfortable. Pain has been controlled. No chest pain or shortness of breath. Not feel ing dizzy or lightheaded. OBJECTIVE: VITAL SIGNS: Temperature 36.8. Vital signs are stable. GENERAL: Shows a pleasant middle-aged female. She looks quite tired still this morning. She is lyi ng in bed. She looks comfortable, but tired. LUNGS: Clear to auscultation. HEART: Regular rate and rhythm. ABDOMEN: Soft, nontender, nondistended. EXTREMITIES: Grossly neurovascularly intact except as follows: Examination of the left leg reveals the leg to be well aligned. Dressing is clean, dry and intact. She can dorsiflex and plantarflex her foot appropriately. LABORATORY DATA: Hemoglobin 11.1. Hematocrit 34.0. Electrolytes are stable. ASSESSMENT: A 71-year-old white female postoperative day 1 from a left knee replacement, doing prett y well. Pretty tired this morning. Just had a restless night. Pain is controlled. She is neurolog ically intact. PLAN: 1. DVT prophylaxis includes thigh-high TEDs, SCDs, and aspirin twice a day. 2. PT, OT, weightbear as tolerated. Left total knee protocol. 3. Pain control, doing okay with current pain regimen. 4. Disposition: She is hoping to be discharged to [facility]. We will get social servic es working on that today. Job ID: [id number]
[2022-04-03] MEDS ORDERED: dexAMETHasone 10 MG in SYRINGE 0 ML IV SCH (08:00)
[2022-04-03] MEDS: ASCORBIC ACID 500 MG TAB PO SCH (08:35)
[2022-04-03] MEDS: busPIRone 5 MG TAB PO SCH (08:35)
[2022-04-03] MEDS: ASPIRIN 81 MG ECTAB PO SCH (08:35)
[2022-04-03] MEDS: DOCUSATE SODIUM 100 MG CAP PO SCH (08:35)
[2022-04-03] MEDS ORDERED: DESIPRAMINE HCL 50 MG TAB PO SCH (09:00)
[2022-04-03] MEDS ORDERED: MULTIVITAMIN TAB PO SCH (09:00)
[2022-04-03] MEDS ORDERED: ATORVASTATIN 10 MG TAB PO SCH (09:00)
[2022-04-03] MEDS ORDERED: DOCUSATE SODIUM 100 MG CAP PO SCH (09:00)
[2022-04-03] MEDS: oxyCODONE HCL IR 5 MG TAB (IMMEDIATE RELEASE) PO PRN (10:34)
--- NOTE | 2022-04-05 10:59 | Discharge Summary ---
Date of Service April 05, 2022 Discharge Data Procedures Performed Operation Date: 04/02/22 10:40 Actual Procedures p Left Total Knee Arthroplasty(Left) - David Yee MD Hospital Course (1) Status post total left knee replacement: This is a 71 year old patient admitted on 04/02/22 and underwent total knee arthroplasty. She tolerated the procedure well and there were no complications. Transferred to the PACU post op and later to the orthopedic floor for further care. She was given ancef for antibiotic prophylaxis. She was also given TE stockings, SCDs, and aspirin for DVT prophylaxis. Hemoglobin, hematocrit, and vital signs were monitored during her hospital stay and remained stable. Did not require any blood transfusions. There were no complications during her hospital stay. By post op day #1 the patient was tolerating a regular diet, pain was reasonably controlled with oral pain medicine, and she was participating in physical therapy. On post op day #1 the patient was discharged to a rehab facility. She was given printed discharge instructions including prescriptions for extra strength tylenol, aspirin, zofran, and oxycodone. Continue physical therapy, weight bearing as tolerated. Continue TE stockings. Follow up approximately 2 weeks post op or sooner if there are problems or concerns. Coding Level of Care Code None Diagnoses Status post total left knee replacement Z96.652
== END 2022-04-03 17:43 ==
LOC: ASU 09:15 → 3E 09:15
DX: Z88.1 Allergy status to other antibiotic agents; Z88.8 Allergy status to other drugs, medicaments and biological substances; M17.12 Unilateral primary osteoarthritis, left knee